=== PATIENT | male | born 1995 ===

== ENCOUNTER 2017-11-18 20:13 | Emergency (ER) | payer SELFPAY ==
[2017-11-18 20:28] VITALS: BP 120/73
[2017-11-18] MEDS ORDERED: PROVENTIL IH ONE ×2 (20:39→20:42)
== END 2017-11-18 23:30 | disposition left against medical advice (07) ==
LOC: ED 20:13
DX: R05 Cough (principal); R07.0 Pain in throat; Z53.21 Procedure and treatment not carried out due to patient leaving prior to being seen by health care provider
CPT/HCPCS: 93005; 93010